=== PATIENT | female | born 1945 | race Two or more races ===

== ENCOUNTER 2019-05-31 21:22 | Emergency (ER) | payer OTHER ==
[~2019-05-31] VITALS: Ht 167.6 cm; Wt 244.9 kg
[2019-05-31] MEDS ORDERED: NORVASC5 MG (21:32)
[2019-06-01] MEDS ORDERED: ALBUTEROL2.5 MG/3 M IH ×2 (02:37→02:38)
[2019-06-01] MEDS ORDERED: IPRAT-ALBUT 0.5-3 ML IH ×2 (02:37→02:38)
[2019-06-01] MEDS ORDERED: ZYNCOF 20-400120 ML PO ×2 (02:37→02:38)
== END 2019-06-01 02:47 | disposition home or self-care (01) ==
LOC: ER 21:22
DX: J06.9 Acute upper respiratory infection, unspecified (principal)

== ENCOUNTER → 2020-12-12 | Outpatient (CLI) | payer OTHER ==
[~2020-12-12] MED LIST: ALBUTEROL2.5 MG/3 M IH; IPRAT-ALBUT 0.5-3 ML IH; NORVASC5 MG; ZYNCOF 20-400120 ML PO
== END | disposition home or self-care (01) ==
LOC: RAD 11:29
DX: R06.09 Other forms of dyspnea (principal); J45.20 Mild intermittent asthma, uncomplicated; G47.33 Obstructive sleep apnea (adult) (pediatric)